=== PATIENT | female | born 1960 | race Caucasian/White ===

== ENCOUNTER 2017-04-12 10:23 | Outpatient (CLI) | payer MEDICAID ==
[2017-04-12 19:27] LABS: TOTAL T3 1.04 ng/mL (0.87-1.78)
[2017-04-12 19:39] LABS: THYROID STIMULATING HORMONE 1.28 uIU/mL (0.34-5.60)
== END 2017-04-12 10:24 | disposition home or self-care (01) ==
LOC: LAB.F 10:23
PROVIDERS: ATTEND Nurse Practitioner Obstetrics & Gynecology
DX: Z13.29 Encounter for screening for other suspected endocrine disorder (principal)
CPT/HCPCS: 36415; 84436; 84443; 84480

== ENCOUNTER 2017-12-05 15:18 | Outpatient (CLI) | payer MEDICAID ==
--- NOTE | 2017-12-06 10:22 | XRAY Report ---
TWO VIEW CHEST: 12/05/2017 COMPARISON: No comparison. INDICATION: Right chest pain. TECHNIQUE: Two views. FINDINGS: Clear lungs. No pneumothorax or pleural effusion. Mediastinum unremarkable. IMPRESSION: NEGATIVE CHEST. TD: 12/06/2017 10:21 MTDD
== END 2017-12-05 15:19 | disposition home or self-care (01) ==
LOC: DI.S 15:18
PROVIDERS: ATTEND Nurse Practitioner Family
DX: R07.9 Chest pain, unspecified (principal); R05 Cough
CPT/HCPCS: 71046